=== PATIENT | male | born 1935 | race Caucasian/White ===

== ENCOUNTER 2017-12-30 22:27 | Inpatient (IN) ==
[2017-12-30] MEDS ORDERED: MORPHINE 2 MG/1 ML SYRINGE IV STA ×2 (22:33→23:38)
[2017-12-30] MEDS ORDERED: ASPIRIN 325 MG TABLET PO STA (22:33)
[2017-12-30] MEDS ORDERED: ONDANSETRON 4 MG/2 ML VIAL IV STA (22:33)
[2017-12-30] MEDS ORDERED: NITROGLYCERIN 2% OINT 1 INCH/GM PACK TOP STA (22:33)
[2017-12-30] MEDS ORDERED: NITROGLYCERIN 2% OINT 1 INCH/GM PACK TOP ONE (22:59)
[2017-12-30] MEDS ORDERED: MORPHINE 2 MG/1 ML SYRINGE ONE ×2 (23:00→23:40)
[2017-12-30] MEDS ORDERED: ASPIRIN 325 MG TABLET ONE (23:00)
[2017-12-30] MEDS ORDERED: ONDANSETRON 4 MG/2 ML VIAL ONE ×2 (23:00→23:40)
[2017-12-30 23:06] LABS: Basophils % 0.3 % (0.0-0.8); Eosinophils # 0.2 10*3/uL (0.0-0.87); Eosinophils % 1.9 % (0.00-10.9); Hematocrit 34.2 VOL% (42.0-52.0); Hemoglobin 11.5 GM/DL (14.0-18.0); Immature Granulocytes % 0.9 %; Immature Granulocytes Absolute 0.08 #; Lymphocytes % 22.7 % (21.2-54.2); Mean Corpuscular HGB Conc 33.6 GM/DL (32-36); Mean Corpuscular Hemoglobin 33 PG (27-34); Mean Corpuscular Volume 96.9 FL (87-102); Mean Platelet Volume 10.4 FL (9.6-12.0); Monocytes # 1.1 10*3/uL (0.11-0.8); Monocytes % 12.3 % (1.7-12.7); Neutrophils # 5.5 10*3/uL (1.4-7.4); Neutrophils % 61.9 % (38.7-73.9); Platelet Count 161 T/CUMM (130-400); Red Blood Count 3.53 MC/CUMM (3.8-5.5); Red Cell Distribution Width 13.5 % (9.3-17.3); White Blood Count 8.9 T/CUMM (4-12)
[2017-12-30] MEDS ORDERED: ONDANSETRON 4 MG/2 ML VIAL IV PRN (23:38)
[2017-12-30 23:56] LABS: Alanine Aminotransferase 14 U/L (16-61); Albumin 3.5 G/DL (3.4-5.0); Alkaline Phosphatase 84 U/L (45-117); Aspartate Amino Transferase 15 U/L (0-37); Bilirubin,Total < 0.39 MG/DL (0.2-1.0); Blood Urea Nitrogen 31 MG/DL (7-18); Calcium 8.2 MG/DL (8.5-10.1); Glucose 120 MG/DL (74-106); Osmolality,Calculated 288.3 MOS/KG (273-304); Potassium 4.7 MMOL/L (3.5-5.1); Sodium 141 MMOL/L (136-145); Total Protein 6.7 G/DL (6.4-8.3)
[2017-12-31] MEDS ORDERED: SODIUM BICARBONATE 50 MEQ/50 ML VIAL IV STA (00:21)
[2017-12-31] MEDS ORDERED: ACETYLCYSTEINE 600 MG CAPSULE PO STA (00:21)
[2017-12-31 00:22] LABS: INR 0.9; PT Patient Result 9.9 SECS
[2017-12-31] MEDS ORDERED: ENOXAPARIN 100 MG/ML SYRINGE SUBCUT STA (00:23)
[2017-12-31] MEDS ORDERED: ENOXAPARIN 60 MG/0.6 ML SYRINGE ONE (00:25)
[2017-12-31] MEDS ORDERED: SODIUM BICARBONATE 10 MEQ/10 ML SYRINGE IV ONE (00:26)
[2017-12-31] MEDS ORDERED: ACETYLCYSTEINE 600 MG CAPSULE ONE (00:26)
[2017-12-31] MEDS ORDERED: SODIUM BICARBONATE 50 MEQ/50 ML SYRINGE IV STA (00:37)
[2017-12-31] MEDS ORDERED: HEPARIN/NACL 0.9% 2 UNITS/ML 2,000 ML IV ONE (00:40)
[2017-12-31] MEDS ORDERED: LIDOCAINE 1% 20 ML VIAL ONE (00:40)
[2017-12-31 00:46] LABS: Troponin I Only 0.039 NG/ML (0.00-0.045)
[2017-12-31] MEDS ORDERED: MIDAZOLAM 2 MG/2 ML VIAL ONE ×2 (00:54→01:23)
[2017-12-31] MEDS ORDERED: HYDROmorphone 2 MG/1 ML VIAL ONE ×2 (00:55→01:25)
[2017-12-31] MEDS ORDERED: NITROGLYCERIN SL 0.4 MG TABLET SL ONE ×2 (01:19→01:52)
[2017-12-31] MEDS ORDERED: EPTIFIBATIDE 20,000 MCG/10 ML VIAL ONE ×2 (01:28→01:34)
[2017-12-31] MEDS ORDERED: EPTIFIBATIDE 75 MG/100 ML BOTTLE IV SCH (01:33)
[2017-12-31] MEDS ORDERED: EPTIFIBATIDE 75 MG/100 ML BOTTLE IV ONE (01:34)
[2017-12-31] MEDS ORDERED: TICAGRELOR 90 MG TABLET ONE (01:45)
[2017-12-31] MEDS ORDERED: ZALEPLON 5 MG CAPSULE PO PRN (01:49)
[2017-12-31] MEDS ORDERED: MAGNESIUM SULF RIDER 2 GM in PREMIX 1 EACH IV PRN (01:49)
[2017-12-31] MEDS ORDERED: HYDROmorphone 2 MG/1 ML VIAL IV PRN (01:49)
[2017-12-31] MEDS ORDERED: MAGNESIUM SULF RIDER 4 GM in PREMIX 1 EACH IV PRN (01:49)
[2017-12-31] MEDS ORDERED: NITROGLYCERIN SL 0.4 MG TABLET SL PRN (01:51)
[2017-12-31] MEDS ORDERED: SODIUM CHLORIDE 0.9% 1,000 ML IV SCH (02:00)
[2017-12-31 02:55] LABS: Basophils % 0.2 % (0.0-0.8); Eosinophils # 0.2 10*3/uL (0.0-0.87); Eosinophils % 1.9 % (0.00-10.9); Hematocrit 33.8 VOL% (42.0-52.0); Hemoglobin 11.4 GM/DL (14.0-18.0); Immature Granulocytes Absolute 0.09 #; Lymphocytes # 2.8 10*3/uL (1.4-4.0); Lymphocytes % 30.3 % (21.2-54.2); Mean Corpuscular HGB Conc 33.7 GM/DL (32-36); Mean Corpuscular Hemoglobin 33 PG (27-34); Mean Corpuscular Volume 96.3 FL (87-102); Mean Platelet Volume 10.5 FL (9.6-12.0); Monocytes # 1.1 10*3/uL (0.11-0.8); Monocytes % 12.3 % (1.7-12.7); Neutrophils # 4.9 10*3/uL (1.4-7.4); Neutrophils % 54.3 % (38.7-73.9); Platelet Count 163 T/CUMM (130-400); Red Blood Count 3.51 MC/CUMM (3.8-5.5); Red Cell Distribution Width 13.7 % (9.3-17.3); White Blood Count 9.1 T/CUMM (4-12)
[2017-12-31 03:29] LABS: Blood Urea Nitrogen 30 MG/DL (7-18); Calcium 8.2 MG/DL (8.5-10.1); Glucose 120 MG/DL (74-106); Osmolality,Calculated 287.3 MOS/KG (273-304); Potassium 5.2 MMOL/L (3.5-5.1); Sodium 141 MMOL/L (136-145)
[2017-12-31 03:35] LABS: Troponin I Only 0.087 NG/ML (0.00-0.045)
[2017-12-31 03:58] LABS: Risk Ratio 3.66; VLDL CHOLESTEROL 20.6 MG/DL
[2017-12-31] MEDS ORDERED: TICAGRELOR 90 MG TABLET PO SCH (09:00)
[2017-12-31] MEDS ORDERED: GABAPENTIN 300 MG CAPSULE PO SCH (09:00)
[2017-12-31] MEDS ORDERED: RANOLAZINE 500 MG TABLET PO SCH (09:00)
[2017-12-31] MEDS ORDERED: ASPIRIN EC 81 MG TABLET PO SCH (09:00)
[2017-12-31] MEDS ORDERED: CARVEDILOL 6.25 MG TABLET PO SCH (09:00)
[2017-12-31 11:15] VITALS: BP 145/91
[2017-12-31 11:38] LABS: Apearance,Urine Slightly Hazy (Clear); Bilirubin,Urine Negative (Negative); Blood, Urine Large mg/dL (Negative); Glucose,Urine (UA) Negative (Negative); Ketones,Urine Negative (Negative); Mucus,Urine Occasional /LPF (Occasional); Nitrite,Urine Negative (Negative); Protein,Urine Negative; RBC,Urine 664 /HPF (0-4); Urine Color Yellow (Yellow); Urine Specific Gravity 1.028 (1.001-1.035); Urine Urobilinogen < 2.0 EU/DL (0.2-1.0); WBC,Urine 14 /HPF (0-6)
[2017-12-31] MEDS ORDERED: ROSUVASTATIN 20 MG TABLET PO SCH (21:00)
[2017-12-31] MEDS ORDERED: CHOLECALCIFEROL 5,000 UNIT TABLET PO SCH (21:00)
[2017-12-31] MEDS ORDERED: MULTIVITAMIN (CENTRUM) TABLET PO SCH (21:00)
== END 2017-12-31 12:40 | disposition home or self-care (01) | DRG 247 ==
LOC: EDBD → EDUNIT# → N.ED 22:27 → N.CC 12-31 00:54
PROVIDERS: ADMIT Internal Medicine Cardiovascular Disease; ATTEND Internal Medicine Cardiovascular Disease

== ENCOUNTER 2019-12-07 14:02 | Observation (INO) ==
[2019-12-07] MEDS ORDERED: ASPIRIN CHEW 81 MG TABLET PO STA (14:40)
[2019-12-07 15:16] LABS: Basophils % 0.3 % (0.0-0.8); Eosinophils # 0.1 10*3/uL (0.0-0.87); Eosinophils % 1.9 % (0.00-10.9); Hemoglobin 10.5 GM/DL (14.0-18.0); Immature Granulocytes % 0.4 %; Immature Granulocytes Absolute 0.03 #; Lymphocytes # 1.6 10*3/uL (1.4-4.0); Lymphocytes % 20.8 % (21.2-54.2); Mean Corpuscular HGB Conc 32.8 GM/DL (32-36); Mean Corpuscular Volume 95.8 FL (87-102); Mean Platelet Volume 10.7 FL (9.6-12.0); Monocytes % 15.6 % (1.7-12.7); Platelet Count 111 T/CUMM (130-400); Red Blood Count 3.34 MC/CUMM (3.8-5.5); Red Cell Distribution Width 13.7 % (9.3-17.3); White Blood Count 7.5 T/CUMM (4-12)
[2019-12-07 15:25] LABS: INR 1.1; PT Patient Result 11.8 SECS (9.6-12.2); Partial Thromboplastin Time 33.8 SECS (20.8-36.0)
[2019-12-07] MEDS ORDERED: ONDANSETRON 4 MG/2 ML VIAL IV PRN (15:33)
[2019-12-07 15:44] LABS: Alanine Aminotransferase 10 U/L (16-61); Albumin 3.3 G/DL (3.4-5.0); Alkaline Phosphatase 49 U/L (45-117); Aspartate Amino Transferase 13 U/L (0-37); Blood Urea Nitrogen 21 MG/DL (7-18); Calcium 7.5 MG/DL (8.5-10.1); Estimated Glom Filtration Rate 40 ML/MIN; Glucose 102 MG/DL (74-106); Total Protein 6.4 G/DL (6.4-8.3)
[2019-12-07 15:49] LABS: Eosinophils 2 % (0-10); Lymphocytes 22 % (20-55); Segmented Neutrophils 60 % (50-85); Total Cells Counted 100
[2019-12-07 15:50] LABS: Hypochromasia 1+
[2019-12-07 15:51] LABS: Ovalocytes Slight
[2019-12-07 15:52] LABS: Platelet Estimate Decreased
[2019-12-07] MEDS ORDERED: LORazepam 2 MG/1 ML VIAL IV STA (15:58)
[2019-12-07 16:12] LABS: Risk Ratio 3.52; Thyroid Stimulating Hormone 1.68 uIU/ml (0.358-3.74)
[2019-12-07] MEDS: TICAGRELOR 90 MG TABLET PO SCH (20:20)
[2019-12-07] MEDS: ROSUVASTATIN 20 MG TABLET PO SCH (20:20)
[2019-12-07] MEDS: APIXABAN 5 MG TABLET PO SCH (20:20)
[2019-12-07 22:47] LABS: Apearance,Urine CLEAR (Clear); Bilirubin,Urine Negative (Negative); Blood, Urine Moderate mg/dL (Negative); Glucose,Urine (UA) Negative (Negative); Ketones,Urine Negative (Negative); Mucus,Urine Occasional /LPF (Occasional); Nitrite,Urine Negative (Negative); Protein,Urine Negative; RBC,Urine 16 /HPF (0-4); Urine Color Yellow (Yellow); Urine Specific Gravity 1.011 (1.001-1.035); Urine Urobilinogen < 2.0 EU/DL (0.2-1.0); WBC,Urine 1 /HPF (0-6)
[2019-12-07 22:52] LABS: Barbiturates Screen,Urine Negative (Negative); Benzodiazepines Screen,Urine Negative (Negative); Cannabinoid Screen,Urine Negative (Negative); Opiate Screen,Urine Positive (Negative); Phencyclidine Screen,Urine Negative (Negative)
[2019-12-07] MEDS: RANOLAZINE 500 MG TABLET PO SCH (23:30)
[2019-12-08 04:50] LABS: Basophils % 0.3 % (0.0-0.8); Eosinophils # 0.2 10*3/uL (0.0-0.87); Eosinophils % 2.6 % (0.00-10.9); Hematocrit 29.3 VOL% (42.0-52.0); Hemoglobin 9.6 GM/DL (14.0-18.0); Immature Granulocytes % 0.3 %; Immature Granulocytes Absolute 0.02 #; Lymphocytes # 1.7 10*3/uL (1.4-4.0); Lymphocytes % 24.4 % (21.2-54.2); Mean Corpuscular HGB Conc 32.8 GM/DL (32-36); Mean Corpuscular Volume 94.5 FL (87-102); Mean Platelet Volume 11.4 FL (9.6-12.0); Neutrophils % 52.4 % (38.7-73.9); Platelet Count 119 T/CUMM (130-400); Red Cell Distribution Width 13.7 % (9.3-17.3)
[2019-12-08 05:17] LABS: Osmolality,Calculated 276.7 MOS/KG (273-304)
[2019-12-08 05:28] LABS: Eosinophils 2 % (0-10); Hypochromasia 1+; Lymphocytes 31 % (20-55); Ovalocytes Slight; Platelet Estimate Decreased; Segmented Neutrophils 50 % (50-85); Total Cells Counted 100
[2019-12-08] MEDS: RANOLAZINE 500 MG TABLET PO SCH ×2 (08:27→20:47)
[2019-12-08] MEDS: APIXABAN 5 MG TABLET PO SCH ×2 (08:27→20:47)
[2019-12-08] MEDS: TICAGRELOR 90 MG TABLET PO SCH ×2 (08:27→20:47)
[2019-12-08] MEDS: carvediloL 6.25 MG TABLET PO SCH ×2 (08:27→16:06)
[2019-12-08] MEDS ORDERED: BISACODYL 5 MG TABLET PO PRN (15:53)
[2019-12-08] MEDS: ROSUVASTATIN 20 MG TABLET PO SCH (20:47)
[2019-12-08] MEDS ORDERED: LUNESTA (ESZOPICLONE) 3 MG PO SCH (21:00)
[2019-12-09 05:19] LABS: Basophils % 0.5 % (0.0-0.8); Eosinophils # 0.2 10*3/uL (0.0-0.87); Eosinophils % 2.4 % (0.00-10.9); Hematocrit 31.4 VOL% (42.0-52.0); Hemoglobin 10.3 GM/DL (14.0-18.0); Immature Granulocytes % 0.3 %; Immature Granulocytes Absolute 0.02 #; Lymphocytes # 1.6 10*3/uL (1.4-4.0); Lymphocytes % 26.5 % (21.2-54.2); Mean Corpuscular HGB Conc 32.8 GM/DL (32-36); Mean Corpuscular Volume 94.3 FL (87-102); Mean Platelet Volume 11.3 FL (9.6-12.0); Monocytes % 16.8 % (1.7-12.7); Neutrophils % 53.5 % (38.7-73.9); Platelet Count 118 T/CUMM (130-400); Red Blood Count 3.33 MC/CUMM (3.8-5.5); Red Cell Distribution Width 13.7 % (9.3-17.3); White Blood Count 6.2 T/CUMM (4-12)
[2019-12-09 05:46] LABS: Eosinophils 3 % (0-10); Hypochromasia Slight; Lymphocytes 18 % (20-55); Platelet Estimate Decreased; Segmented Neutrophils 67 % (50-85); Total Cells Counted 100
[2019-12-09 05:49] LABS: Osmolality,Calculated 277.7 MOS/KG (273-304)
[2019-12-09 08:17] VITALS: BP 116/64
== END 2019-12-09 08:52 | disposition left against medical advice (07) ==
LOC: N.EDINP 14:02 → N.ED 14:02 → SUATTDRO 15:07 → N.EDINP 16:43 → N.5E 16:48
PROVIDERS: ADMIT Internal Medicine; ATTEND Internal Medicine Cardiovascular Disease

== ENCOUNTER 2020-01-10 11:11 | Inpatient (IN) ==
[2020-01-10 09:48] LABS: Basophils % 0.4 % (0.0-0.8); Eosinophils # 0.2 10*3/uL (0.0-0.87); Eosinophils % 2.2 % (0.00-10.9); Hematocrit 35.6 VOL% (42.0-52.0); Hemoglobin 11.6 GM/DL (14.0-18.0); Immature Granulocytes % 0.4 %; Immature Granulocytes Absolute 0.03 #; Lymphocytes # 1.6 10*3/uL (1.4-4.0); Mean Corpuscular HGB Conc 32.6 GM/DL (32-36); Mean Corpuscular Volume 94.4 FL (87-102); Mean Platelet Volume 10.4 FL (9.6-12.0); Monocytes % 16.8 % (1.7-12.7); Neutrophils % 57.2 % (38.7-73.9); Platelet Count 136 T/CUMM (130-400); Red Blood Count 3.77 MC/CUMM (3.8-5.5); Red Cell Distribution Width 14.5 % (9.3-17.3); White Blood Count 7.1 T/CUMM (4-12)
[2020-01-10 10:05] LABS: PT Patient Result 10.4 SECS (9.6-12.2)
[2020-01-10 10:08] LABS: Albumin 3.7 G/DL (3.4-5.0); Bilirubin,Total 0.7 MG/DL (0.2-1.0); Calcium 9.7 MG/DL (8.5-10.1); Osmolality,Calculated 275.1 MOS/KG (273-304)
[2020-01-10 10:09] LABS: Eosinophils 4 % (0-10); Hypochromasia 1+; Lymphocytes 22 % (20-55); Platelet Estimate Normal; Segmented Neutrophils 59 % (50-85); Total Cells Counted 100
[~2020-01-10 11:11] MED LIST: ACETAMINOPHEN 325 MG TABLET PO PRN; DOCUSATE SODIUM 100 MG CAPSULE PO PRN; MAGNESIUM SULF RIDER 2 GM in PREMIX 1 EACH IV PRN; MAGNESIUM SULF RIDER 4 GM in PREMIX 1 EACH IV PRN; NITROGLYCERIN SL 0.4 MG TABLET SL PRN; ONDANSETRON 4 MG/2 ML VIAL IV PRN; POTASSIUM CHLORIDE 20 MEQ TABLET PO PRN; ZALEPLON 5 MG CAPSULE PO PRN; diphenhydrAMINE CAP 25 MG CAPSULE PO PRN
[2020-01-10] MEDS ORDERED: ASPIRIN EC 81 MG TABLET PO SCH (11:15)
[2020-01-10] MEDS: Eszopiclone [Lunesta] 3 MG PO SCH ×2 (11:18→23:15)
[2020-01-10] MEDS: CHOLECALCIFEROL 5,000 UNIT TABLET PO SCH ×2 (11:18→23:15)
[2020-01-10] MEDS: FAMOTIDINE 20 MG TABLET PO SCH ×2 (11:18→23:15)
[2020-01-10] MEDS: ROSUVASTATIN 20 MG TABLET PO SCH ×2 (11:18→23:14)
[2020-01-10] MEDS: HEPARIN DRIP 25,000 UNITS/500 ML PREMIX IV SCH (11:32)
[2020-01-10 18:53] LABS: Apearance,Urine Slightly Hazy (Clear); Bilirubin,Urine Negative (Negative); Blood, Urine Large mg/dL (Negative); Glucose,Urine (UA) Negative (Negative); Ketones,Urine Negative (Negative); Mucus,Urine Occasional /LPF (Occasional); Nitrite,Urine Negative (Negative); Protein,Urine 30 MG/DL; RBC,Urine 1175 /HPF (0-4); Urine Color Red (Yellow); Urine Specific Gravity 1.011 (1.001-1.035); Urine Urobilinogen < 2.0 EU/DL (0.2-1.0)
[2020-01-10] MEDS: carvediloL 6.25 MG TABLET PO SCH (23:15)
[2020-01-10] MEDS: RANOLAZINE 500 MG TABLET PO SCH (23:15)
[2020-01-11 02:00] LABS: Basophils % 0.6 % (0.0-0.8); Eosinophils # 0.2 10*3/uL (0.0-0.87); Eosinophils % 3.2 % (0.00-10.9); Hematocrit 33.5 VOL% (42.0-52.0); Hemoglobin 11.1 GM/DL (14.0-18.0); Immature Granulocytes % 0.5 %; Immature Granulocytes Absolute 0.03 #; Lymphocytes # 2.2 10*3/uL (1.4-4.0); Lymphocytes % 34.3 % (21.2-54.2); Mean Corpuscular HGB Conc 33.1 GM/DL (32-36); Mean Corpuscular Volume 94.4 FL (87-102); Mean Platelet Volume 10.4 FL (9.6-12.0); Monocytes % 17.1 % (1.7-12.7); Neutrophils % 44.3 % (38.7-73.9); Platelet Count 125 T/CUMM (130-400); Red Blood Count 3.55 MC/CUMM (3.8-5.5); White Blood Count 6.3 T/CUMM (4-12)
[2020-01-11 02:17] LABS: Calcium 9.2 MG/DL (8.5-10.1); Osmolality,Calculated 271.2 MOS/KG (273-304)
[2020-01-11 02:32] LABS: Eosinophils 3 % (0-10); Hypochromasia Slight; Lymphocytes 39 % (20-55); Platelet Estimate Normal; Segmented Neutrophils 43 % (50-85); Total Cells Counted 100
[2020-01-11 02:33] LABS: Ovalocytes Slight
[2020-01-11] MEDS ORDERED: ASPIRIN EC 81 MG TABLET PO SCH (09:00)
[2020-01-11] MEDS: PANTOPRAZOLE 40 MG TABLET PO SCH (09:27)
[2020-01-11] MEDS: RANOLAZINE 500 MG TABLET PO SCH ×2 (09:27→20:50)
[2020-01-11] MEDS: carvediloL 6.25 MG TABLET PO SCH ×2 (09:27→20:50)
[2020-01-11] MEDS: CETIRIZINE 10 MG TABLET PO SCH ×7 (10:03→20:52)
[2020-01-11] MEDS: ROSUVASTATIN 20 MG TABLET PO SCH ×2 (13:09→20:50)
[2020-01-11] MEDS: Eszopiclone [Lunesta] 3 MG PO SCH ×2 (13:10→20:52)
[2020-01-11] MEDS: FAMOTIDINE 20 MG TABLET PO SCH ×2 (13:10→20:52)
[2020-01-11] MEDS: CHOLECALCIFEROL 5,000 UNIT TABLET PO SCH ×2 (13:10→20:52)
[2020-01-11] MEDS: HEPARIN DRIP 25,000 UNITS/500 ML PREMIX IV SCH (13:43)
[2020-01-11] MEDS ORDERED: CETIRIZINE 10 MG TABLET PO SCH (21:00)
[2020-01-11] MEDS ORDERED: CHOLECALCIFEROL 5,000 UNIT TABLET PO SCH (21:00)
[2020-01-11] MEDS ORDERED: ROSUVASTATIN 20 MG TABLET PO SCH (21:00)
[2020-01-11] MEDS ORDERED: FAMOTIDINE 20 MG TABLET PO SCH (21:00)
[2020-01-12 05:12] LABS: Basophils % 0.6 % (0.0-0.8); Eosinophils # 0.2 10*3/uL (0.0-0.87); Hematocrit 31.9 VOL% (42.0-52.0); Hemoglobin 10.3 GM/DL (14.0-18.0); Immature Granulocytes % 0.3 %; Immature Granulocytes Absolute 0.02 #; Lymphocytes % 31.7 % (21.2-54.2); Mean Corpuscular HGB Conc 32.3 GM/DL (32-36); Mean Corpuscular Volume 95.8 FL (87-102); Monocytes % 16.7 % (1.7-12.7); Neutrophils % 47.7 % (38.7-73.9); Platelet Count 125 T/CUMM (130-400); Red Blood Count 3.33 MC/CUMM (3.8-5.5); Red Cell Distribution Width 14.3 % (9.3-17.3); White Blood Count 6.3 T/CUMM (4-12)
[2020-01-12 05:27] LABS: Calcium 8.5 MG/DL (8.5-10.1); Osmolality,Calculated 278.7 MOS/KG (273-304)
[2020-01-12 05:50] LABS: Atypical Lymphocytes Few; Eosinophils 1 % (0-10); Lymphocytes 40 % (20-55); Segmented Neutrophils 47 % (50-85); Total Cells Counted 100
[2020-01-12 05:51] LABS: Hypochromasia Slight; Platelet Estimate Adequate
[2020-01-12] MEDS ORDERED: LIDOCAINE 2% TOP JELLY 20 ML VIAL INTRAURETH ONE (06:37)
[2020-01-12] MEDS ORDERED: NEOMYCIN/POLYMYXIN IRRIG SOLN 1 ML AMP BLADDERIRR ONE (06:37)
[2020-01-12] MEDS ORDERED: LEVOFLOXACIN INJ 100 ML IV ONE (07:28)
[2020-01-12] MEDS ORDERED: PHENYLEPHRINE DRIP 20 MG/250 ML PREMIX IV ONE (08:51)
[2020-01-12] MEDS ORDERED: propofoL 200 MG/20 ML VIAL IV ONE (08:51)
[2020-01-12] MEDS ORDERED: SEVOFLURANE 1 UNIT/15 MINUTE INH ONE (08:51)
[2020-01-12] MEDS ORDERED: LIDOCAINE 2% 5 ML VIAL ONE (08:51)
[2020-01-12] MEDS ORDERED: fentaNYL 100 MCG/2 ML VIAL ONE (08:52)
[2020-01-12] MEDS ORDERED: MIDAZOLAM 2 MG/2 ML VIAL ONE (08:52)
[2020-01-12] MEDS ORDERED: GLYCOPYRROLATE 0.4 MG/2 ML VIAL ONE (08:52)
[2020-01-12] MEDS ORDERED: DEXAMETHASONE 4 MG/1 ML VIAL ONE (08:52)
[2020-01-12] MEDS ORDERED: ETOMIDATE 40 MG/20 ML VIAL IV ONE (08:52)
[2020-01-12] MEDS ORDERED: ONDANSETRON 4 MG/2 ML VIAL ONE (08:52)
[2020-01-12] MEDS ORDERED: NEOSTIGMINE 10 MG/10 ML VIAL ONE (08:53)
[2020-01-12] MEDS ORDERED: SODIUM CHLORIDE 0.9% 1,000 ML IV ONE (08:53)
[2020-01-12] MEDS ORDERED: PHENYLEPHRINE 1 MG/10 ML SYRINGE IV ONE (08:53)
[2020-01-12] MEDS ORDERED: ROCURONIUM 100 MG/10 ML VIAL IV ONE (08:53)
[2020-01-12] MEDS ORDERED: MEPERIDINE 25 MG/1 ML VIAL IV PRN (08:54)
[2020-01-12] MEDS ORDERED: ONDANSETRON 4 MG/2 ML VIAL IV PRN (08:54)
[2020-01-12] MEDS: MORPHINE 4 MG/1 ML VIAL IV PRN ×2 (10:38→23:24)
[2020-01-12] MEDS: CETIRIZINE 10 MG TABLET PO SCH ×2 (10:40→21:23)
[2020-01-12] MEDS: carvediloL 6.25 MG TABLET PO SCH ×2 (10:40→21:21)
[2020-01-12] MEDS: PANTOPRAZOLE 40 MG TABLET PO SCH (10:40)
[2020-01-12] MEDS: RANOLAZINE 500 MG TABLET PO SCH ×2 (10:40→21:22)
[2020-01-12] MEDS ORDERED: HYDROmorphone 2 MG/1 ML VIAL IV ONE (11:46)
[2020-01-12] MEDS: PHENAZOPYRIDINE 95 MG TABLET PO SCH ×2 (13:22→18:24)
[2020-01-12] MEDS: ROSUVASTATIN 20 MG TABLET PO SCH (21:22)
[2020-01-12] MEDS: CHOLECALCIFEROL 5,000 UNIT TABLET PO SCH (21:22)
[2020-01-12] MEDS: FAMOTIDINE 20 MG TABLET PO SCH (21:25)
[2020-01-12] MEDS: Eszopiclone [Lunesta] 3 MG PO SCH ×2 (21:53→23:00)
[2020-01-13 06:21] LABS: Hematocrit 31.2 VOL% (42.0-52.0); Immature Granulocytes % 0.6 %; Immature Granulocytes Absolute 0.05 #; Lymphocytes # 1.4 10*3/uL (1.4-4.0); Lymphocytes % 15.6 % (21.2-54.2); Mean Corpuscular HGB Conc 32.1 GM/DL (32-36); Mean Corpuscular Volume 96.3 FL (87-102); Monocytes % 11.6 % (1.7-12.7); Neutrophils % 72.2 % (38.7-73.9); Platelet Count 129 T/CUMM (130-400); Red Blood Count 3.24 MC/CUMM (3.8-5.5); Red Cell Distribution Width 14.4 % (9.3-17.3); White Blood Count 8.8 T/CUMM (4-12)
[2020-01-13 06:27] LABS: PT Patient Result 10.8 SECS (9.6-12.2); Partial Thromboplastin Time 26.2 SECS (20.8-36.0)
[2020-01-13 06:47] LABS: Calcium 8.6 MG/DL (8.5-10.1)
[2020-01-13] MEDS ORDERED: HEPARIN 5,000 UNIT/1 ML VIAL IV ONE (07:30)
[2020-01-13] MEDS: HEPARIN DRIP 25,000 UNITS/500 ML PREMIX IV SCH (07:45)
[2020-01-13] MEDS: RANOLAZINE 500 MG TABLET PO SCH ×2 (09:32→21:11)
[2020-01-13] MEDS: PHENAZOPYRIDINE 95 MG TABLET PO SCH ×3 (09:32→18:21)
[2020-01-13] MEDS: carvediloL 6.25 MG TABLET PO SCH ×2 (09:33→21:11)
[2020-01-13] MEDS: PANTOPRAZOLE 40 MG TABLET PO SCH (09:33)
[2020-01-13] MEDS: CETIRIZINE 10 MG TABLET PO SCH ×2 (09:36→21:12)
[2020-01-13] MEDS: MORPHINE 4 MG/1 ML VIAL IV PRN ×2 (10:19→22:23)
[2020-01-13 14:50] LABS: PT Patient Result 10.4 SECS (9.6-12.2); Partial Thromboplastin Time 35.2 SECS (20.8-36.0)
[2020-01-13] MEDS: ROSUVASTATIN 20 MG TABLET PO SCH (21:11)
[2020-01-13] MEDS: Eszopiclone [Lunesta] 3 MG PO SCH (21:11)
[2020-01-13] MEDS: FAMOTIDINE 20 MG TABLET PO SCH (21:11)
[2020-01-13] MEDS: CHOLECALCIFEROL 5,000 UNIT TABLET PO SCH (21:12)
[2020-01-14 00:48] LABS: Basophils % 0.1 % (0.0-0.8); Eosinophils # 0.1 10*3/uL (0.0-0.87); Eosinophils % 1.2 % (0.00-10.9); Hematocrit 28.8 VOL% (42.0-52.0); Hemoglobin 9.3 GM/DL (14.0-18.0); Immature Granulocytes % 0.5 %; Immature Granulocytes Absolute 0.04 #; Lymphocytes # 1.8 10*3/uL (1.4-4.0); Lymphocytes % 23.4 % (21.2-54.2); Mean Corpuscular HGB Conc 32.3 GM/DL (32-36); Mean Corpuscular Volume 97.3 FL (87-102); Mean Platelet Volume 11.2 FL (9.6-12.0); Monocytes % 14.8 % (1.7-12.7); Platelet Count 121 T/CUMM (130-400); Red Blood Count 2.96 MC/CUMM (3.8-5.5); Red Cell Distribution Width 14.6 % (9.3-17.3); White Blood Count 7.6 T/CUMM (4-12)
[2020-01-14 01:05] LABS: Calcium 8.4 MG/DL (8.5-10.1)
[2020-01-14 01:25] LABS: PT Patient Result 10.6 SECS (9.6-12.2)
[2020-01-14 01:35] LABS: Partial Thromboplastin Time 54.1 SECS (20.8-36.0)
[2020-01-14] MEDS: PHENAZOPYRIDINE 95 MG TABLET PO SCH ×3 (08:51→18:17)
[2020-01-14] MEDS: RANOLAZINE 500 MG TABLET PO SCH ×2 (08:51→21:16)
[2020-01-14] MEDS: PANTOPRAZOLE 40 MG TABLET PO SCH (08:52)
[2020-01-14] MEDS: carvediloL 6.25 MG TABLET PO SCH ×2 (08:52→21:16)
[2020-01-14] MEDS: MORPHINE 4 MG/1 ML VIAL IV PRN ×2 (08:52→21:16)
[2020-01-14] MEDS ORDERED: BISACODYL 5 MG TABLET PO ONE (09:17)
[2020-01-14] MEDS: HEPARIN DRIP 25,000 UNITS/500 ML PREMIX IV SCH (11:16)
[2020-01-14] MEDS: CETIRIZINE 10 MG TABLET PO SCH ×2 (11:17→21:15)
[2020-01-14] MEDS: DEXTROSE 5% NACL 0.45% 1,000 ML IV SCH ×2 (11:47→21:31)
[2020-01-14 15:46] LABS: Hematocrit 30.5 VOL% (42.0-52.0); Hemoglobin 9.9 GM/DL (14.0-18.0)
[2020-01-14] MEDS: ROSUVASTATIN 20 MG TABLET PO SCH (21:15)
[2020-01-14] MEDS: CHOLECALCIFEROL 5,000 UNIT TABLET PO SCH (21:15)
[2020-01-14] MEDS: FAMOTIDINE 20 MG TABLET PO SCH (21:16)
[2020-01-14] MEDS: Eszopiclone [Lunesta] 3 MG PO SCH (21:23)
[2020-01-15 06:14] LABS: Basophils % 0.5 % (0.0-0.8); Eosinophils # 0.2 10*3/uL (0.0-0.87); Eosinophils % 2.9 % (0.00-10.9); Hematocrit 32.1 VOL% (42.0-52.0); Immature Granulocytes % 0.4 %; Immature Granulocytes Absolute 0.03 #; Lymphocytes # 2.1 10*3/uL (1.4-4.0); Lymphocytes % 27.4 % (21.2-54.2); Mean Corpuscular HGB Conc 31.2 GM/DL (32-36); Monocytes % 16.3 % (1.7-12.7); Neutrophils % 52.5 % (38.7-73.9); Platelet Count 142 T/CUMM (130-400); Red Blood Count 3.21 MC/CUMM (3.8-5.5); Red Cell Distribution Width 14.3 % (9.3-17.3); White Blood Count 7.7 T/CUMM (4-12)
[2020-01-15 06:32] LABS: Osmolality,Calculated 280.7 MOS/KG (273-304)
[2020-01-15] MEDS: DEXTROSE 5% NACL 0.45% 1,000 ML IV SCH ×2 (07:43→17:40)
[2020-01-15 09:02] LABS: Lymphocytes 9 % (20-55); Metamyelocytes 1 %; Platelet Estimate Adequate; Segmented Neutrophils 69 % (50-85); Total Cells Counted 100
[2020-01-15] MEDS: PANTOPRAZOLE 40 MG TABLET PO SCH (09:13)
[2020-01-15] MEDS: PHENAZOPYRIDINE 95 MG TABLET PO SCH ×3 (09:13→17:38)
[2020-01-15] MEDS: CETIRIZINE 10 MG TABLET PO SCH ×2 (09:13→21:27)
[2020-01-15] MEDS: RANOLAZINE 500 MG TABLET PO SCH ×2 (09:13→21:28)
[2020-01-15] MEDS: carvediloL 6.25 MG TABLET PO SCH ×2 (09:13→21:28)
[2020-01-15] MEDS: HEPARIN DRIP 25,000 UNITS/500 ML PREMIX IV SCH (12:01)
[2020-01-15 16:07] LABS: Hematocrit 30.9 VOL% (42.0-52.0); Hemoglobin 9.7 GM/DL (14.0-18.0)
[2020-01-15] MEDS: CHOLECALCIFEROL 5,000 UNIT TABLET PO SCH (21:27)
[2020-01-15] MEDS: FAMOTIDINE 20 MG TABLET PO SCH (21:28)
[2020-01-15] MEDS: ROSUVASTATIN 20 MG TABLET PO SCH (21:28)
[2020-01-15] MEDS: Eszopiclone [Lunesta] 3 MG PO SCH (21:30)
[2020-01-16 05:28] LABS: Basophils % 0.4 % (0.0-0.8); Eosinophils # 0.2 10*3/uL (0.0-0.87); Eosinophils % 2.5 % (0.00-10.9); Hematocrit 31.5 VOL% (42.0-52.0); Hemoglobin 9.8 GM/DL (14.0-18.0); Immature Granulocytes % 0.3 %; Immature Granulocytes Absolute 0.02 #; Lymphocytes # 1.6 10*3/uL (1.4-4.0); Lymphocytes % 21.2 % (21.2-54.2); Mean Corpuscular HGB Conc 31.1 GM/DL (32-36); Mean Corpuscular Volume 97.5 FL (87-102); Mean Platelet Volume 11.2 FL (9.6-12.0); Monocytes % 15.9 % (1.7-12.7); Neutrophils % 59.7 % (38.7-73.9); Platelet Count 140 T/CUMM (130-400); Red Blood Count 3.23 MC/CUMM (3.8-5.5); Red Cell Distribution Width 14.2 % (9.3-17.3); White Blood Count 7.7 T/CUMM (4-12)
[2020-01-16 05:55] LABS: Calcium 8.2 MG/DL (8.5-10.1); Osmolality,Calculated 268.4 MOS/KG (273-304)
[2020-01-16 06:05] LABS: Band Neutrophils 3 % (0-10); Eosinophils 4 % (0-10); Lymphocytes 17 % (20-55); Segmented Neutrophils 60 % (50-85); Total Cells Counted 100
[2020-01-16 06:06] LABS: Anisocytosis 1+; Platelet Estimate Adequate
[2020-01-16] MEDS: HEPARIN DRIP 25,000 UNITS/500 ML PREMIX IV SCH (06:56)
[2020-01-16] MEDS: DEXTROSE 5% NACL 0.45% 1,000 ML IV SCH (07:31)
[2020-01-16 09:09] VITALS: BP 128/66
[2020-01-16] MEDS: PANTOPRAZOLE 40 MG TABLET PO SCH (09:21)
[2020-01-16] MEDS: carvediloL 6.25 MG TABLET PO SCH (09:21)
[2020-01-16] MEDS: PHENAZOPYRIDINE 95 MG TABLET PO SCH (09:21)
[2020-01-16] MEDS: RANOLAZINE 500 MG TABLET PO SCH (09:21)
[2020-01-16] MEDS: CETIRIZINE 10 MG TABLET PO SCH (09:21)
[2020-01-16] MEDS ORDERED: BISACODYL 5 MG TABLET PO ONE (11:54)
== END 2020-01-16 12:47 | disposition home or self-care (01) | DRG 669 ==
LOC: N.EDINP → N.TELEN → PREINTOOBSV 13:53
PROVIDERS: ADMIT Internal Medicine Interventional Cardiology; ATTEND Internal Medicine Interventional Cardiology

== ENCOUNTER 2022-07-09 08:53 | Inpatient (IN) ==
[2022-07-09] MEDS ORDERED: LIDOCAINE 2% 5 ML VIAL ONE ×2 (09:23→10:11)
[2022-07-09] MEDS ORDERED: fentaNYL 100 MCG/2 ML VIAL ONE (09:23)
[2022-07-09] MEDS ORDERED: propofoL 200 MG/20 ML VIAL IV ONE ×3 (09:23→10:11)
[2022-07-09] MEDS ORDERED: ONDANSETRON 4 MG/2 ML VIAL ONE (09:23)
[2022-07-09 09:28] LABS: Basophils % 0.4 % (0.0-0.8); Eosinophils # 0.2 10*3/uL (0.0-0.87); Eosinophils % 1.8 % (0.00-10.9); Hematocrit 29.2 VOL% (42.0-52.0); Hemoglobin 9.5 GM/DL (14.0-18.0); Immature Granulocytes % 0.4 %; Immature Granulocytes Absolute 0.03 #; Lymphocytes # 1.6 10*3/uL (1.4-4.0); Lymphocytes % 19.3 % (21.2-54.2); Mean Corpuscular HGB Conc 32.5 GM/DL (32-36); Mean Corpuscular Volume 95.1 FL (87-102); Mean Platelet Volume 11.4 FL (9.6-12.0); Monocytes # 1.4 10*3/uL (0.11-0.8); Monocytes % 16.1 % (1.7-12.7); Platelet Count 133 T/CUMM (130-400); Red Blood Count 3.07 MC/CUMM (3.8-5.5); Red Cell Distribution Width 18.2 % (9.3-17.3); White Blood Count 8.4 T/CUMM (4-12)
[2022-07-09 09:49] LABS: Albumin 3.4 G/DL (3.4-5.0); Bilirubin,Total 0.6 MG/DL (0.20-1.00); Calcium 8.7 MG/DL (8.5-10.1); Lymphocytes 19 % (20-55); Osmolality,Calculated 281.5 MOS/KG (273-304); Platelet Estimate Normal; Potassium 4.3 MMOL/L (3.5-5.1); Total Cells Counted 100; Total Protein 6.8 G/DL (6.4-8.2)
[2022-07-09] MEDS ORDERED: cefTRIAXone 1,000 MG in SODIUM CHLORIDE 0.9% 100 ML IV ONE (10:00)
[2022-07-09] MEDS ORDERED: SODIUM CHLORIDE 0.9% 250 ML IV ONE (10:11)
[2022-07-09] MEDS ORDERED: ETOMIDATE 40 MG/20 ML VIAL IV ONE (10:12)
[2022-07-09] MEDS ORDERED: LACTATED RINGERS 1,000 ML IV SCH (10:30)
[2022-07-09] MEDS ORDERED: MIDAZOLAM 2 MG/2 ML VIAL ONE (10:32)
[2022-07-09] MEDS ORDERED: KETAMINE 500 MG/10 ML VIAL ONE (10:35)
[2022-07-09] MEDS ORDERED: ePHEDrine 50 MG/ML VIAL ONE (11:00)
[2022-07-09] MEDS ORDERED: oxyCODONE/ACETAMINOPHEN 5-325 MG TABLET PO PRN (11:06)
[2022-07-09] MEDS ORDERED: ONDANSETRON 4 MG/2 ML VIAL IV PRN ×2 (11:06→11:25)
[2022-07-09] MEDS ORDERED: diphenhydrAMINE 50 MG/1 ML VIAL IV PRN (11:06)
[2022-07-09] MEDS ORDERED: PROMETHAZINE 25 MG/1 ML VIAL IM PRN (11:06)
[2022-07-09] MEDS ORDERED: SIMETHICONE CHEW 125 MG TABLET PO PRN (11:06)
[2022-07-09] MEDS ORDERED: NITROGLYCERIN SL 0.4 MG TABLET SL PRN (11:09)
[2022-07-09] MEDS: HYDROmorphone 1 MG/1 ML SYRINGE IV PRN ×5 (11:25→20:47)
[2022-07-09] MEDS ORDERED: cefTRIAXone 1,000 MG in SODIUM CHLORIDE 0.9% 100 ML IV SCH (11:30)
[2022-07-09] MEDS: ACETAMINOPHEN 325 MG TABLET PO SCH ×4 (12:59→22:59)
[2022-07-09] MEDS: FAMOTIDINE 20 MG TABLET PO SCH (20:46)
[2022-07-09] MEDS: ROSUVASTATIN 20 MG TABLET PO SCH (20:46)
[2022-07-09] MEDS: carvediloL 6.25 MG TABLET PO SCH (20:46)
[2022-07-09] MEDS: CETIRIZINE 10 MG TABLET PO SCH (20:47)
[2022-07-09] MEDS: ZALEPLON 5 MG CAPSULE PO SCH (20:47)
[2022-07-10 04:34] LABS: Basophils % 0.4 % (0.0-0.8); Eosinophils # 0.2 10*3/uL (0.0-0.87); Eosinophils % 2.7 % (0.00-10.9); Hematocrit 27.2 VOL% (42.0-52.0); Hemoglobin 8.7 GM/DL (14.0-18.0); Immature Granulocytes % 0.4 %; Immature Granulocytes Absolute 0.03 #; Lymphocytes # 1.7 10*3/uL (1.4-4.0); Lymphocytes % 21.8 % (21.2-54.2); Mean Corpuscular Volume 96.5 FL (87-102); Mean Platelet Volume 11.4 FL (9.6-12.0); Monocytes # 1.4 10*3/uL (0.11-0.8); Monocytes % 18.3 % (1.7-12.7); Neutrophils % 56.4 % (38.7-73.9); Platelet Count 131 T/CUMM (130-400); Red Blood Count 2.82 MC/CUMM (3.8-5.5); Red Cell Distribution Width 18.2 % (9.3-17.3); White Blood Count 7.9 T/CUMM (4-12)
[2022-07-10 04:50] LABS: Calcium 8.3 MG/DL (8.5-10.1); Osmolality,Calculated 279.7 MOS/KG (273-304); Potassium 4.4 MMOL/L (3.5-5.1)
[2022-07-10 05:03] LABS: Eosinophils 2 % (0-10); Hypochromia Slight; Lymphocytes 24 % (20-55); Microcytosis Slight; Platelet Estimate Normal; Total Cells Counted 100
[2022-07-10] MEDS: ACETAMINOPHEN 325 MG TABLET PO SCH ×3 (06:25→16:58)
[2022-07-10] MEDS: RANOLAZINE 500 MG TABLET PO SCH (08:17)
[2022-07-10] MEDS: carvediloL 6.25 MG TABLET PO SCH ×2 (08:17→21:32)
[2022-07-10] MEDS ORDERED: ISOSORBIDE MONONITRATE 30 MG TABLET PO SCH (09:00)
[2022-07-10] MEDS ORDERED: AMOXICILLIN 875 MG TABLET PO SCH (09:00)
[2022-07-10] MEDS: HYDROmorphone 1 MG/1 ML SYRINGE IV PRN ×2 (15:44→19:30)
[2022-07-10] MEDS: FAMOTIDINE 20 MG TABLET PO SCH (21:34)
[2022-07-10] MEDS: ISOSORBIDE MONONITRATE 30 MG TABLET PO SCH (21:35)
[2022-07-10] MEDS: CETIRIZINE 10 MG TABLET PO SCH (21:35)
[2022-07-10] MEDS: ROSUVASTATIN 20 MG TABLET PO SCH (21:35)
[2022-07-10] MEDS: ZALEPLON 5 MG CAPSULE PO SCH (21:39)
[2022-07-11] MEDS: ACETAMINOPHEN 325 MG TABLET PO SCH ×4 (02:52→17:05)
[2022-07-11 05:31] LABS: Basophils % 0.3 % (0.0-0.8); Eosinophils # 0.2 10*3/uL (0.0-0.87); Eosinophils % 3.3 % (0.00-10.9); Hematocrit 24.6 VOL% (42.0-52.0); Hemoglobin 7.9 GM/DL (14.0-18.0); Immature Granulocytes % 0.4 %; Immature Granulocytes Absolute 0.03 #; Lymphocytes # 1.9 10*3/uL (1.4-4.0); Lymphocytes % 26.7 % (21.2-54.2); Mean Corpuscular HGB Conc 32.1 GM/DL (32-36); Mean Corpuscular Volume 96.9 FL (87-102); Mean Platelet Volume 11.6 FL (9.6-12.0); Monocytes # 1.4 10*3/uL (0.11-0.8); Monocytes % 19.2 % (1.7-12.7); Neutrophils % 50.1 % (38.7-73.9); Platelet Count 128 T/CUMM (130-400); Red Blood Count 2.54 MC/CUMM (3.8-5.5); Red Cell Distribution Width 17.9 % (9.3-17.3); White Blood Count 7.2 T/CUMM (4-12)
[2022-07-11 05:40] LABS: Calcium 8.1 MG/DL (8.5-10.1); Osmolality,Calculated 283.5 MOS/KG (273-304); Potassium 4.3 MMOL/L (3.5-5.1)
[2022-07-11 06:04] LABS: Eosinophils 5 % (0-10); Lymphocytes 18 % (20-55); Total Cells Counted 100
[2022-07-11 06:05] LABS: Hypochromia Slight; Macrocytosis Slight
[2022-07-11] MEDS ORDERED: SODIUM CHLORIDE 0.9% 1,000 ML IV PRN (07:46)
[2022-07-11] MEDS: carvediloL 6.25 MG TABLET PO SCH ×2 (10:39→21:34)
[2022-07-11] MEDS: ISOSORBIDE MONONITRATE 30 MG TABLET PO SCH ×2 (10:39→21:34)
[2022-07-11] MEDS: RANOLAZINE 500 MG TABLET PO SCH (10:39)
[2022-07-11] MEDS ORDERED: cefTRIAXone 1,000 MG in SODIUM CHLORIDE 0.9% 100 ML IV SCH ×2 (16:00→20:00)
[2022-07-11] MEDS: FAMOTIDINE 20 MG TABLET PO SCH (21:34)
[2022-07-11] MEDS: ROSUVASTATIN 20 MG TABLET PO SCH (21:34)
[2022-07-11] MEDS: CETIRIZINE 10 MG TABLET PO SCH (21:34)
[2022-07-11] MEDS: ZALEPLON 5 MG CAPSULE PO SCH (21:39)
[2022-07-12] MEDS: ACETAMINOPHEN 325 MG TABLET PO SCH ×2 (00:17→05:02)
[2022-07-12 06:24] LABS: Basophils % 0.6 % (0.0-0.8); Eosinophils # 0.2 10*3/uL (0.0-0.87); Eosinophils % 3.5 % (0.00-10.9); Hematocrit 31.1 VOL% (42.0-52.0); Hemoglobin 10.2 GM/DL (14.0-18.0); Immature Granulocytes % 0.6 %; Immature Granulocytes Absolute 0.04 #; Lymphocytes # 1.7 10*3/uL (1.4-4.0); Lymphocytes % 24.5 % (21.2-54.2); Mean Corpuscular HGB Conc 32.8 GM/DL (32-36); Mean Platelet Volume 11.2 FL (9.6-12.0); Monocytes # 1.1 10*3/uL (0.11-0.8); Monocytes % 16.2 % (1.7-12.7); Neutrophils % 54.6 % (38.7-73.9); Platelet Count 153 T/CUMM (130-400); Red Blood Count 3.31 MC/CUMM (3.8-5.5); White Blood Count 6.8 T/CUMM (4-12)
[2022-07-12 06:44] LABS: Eosinophils 5 % (0-10); Lymphocytes 32 % (20-55); Total Cells Counted 100
[2022-07-12 06:45] LABS: Microcytosis 1+; Ovalocytes Slight; Platelet Estimate Adequate
[2022-07-12 06:47] LABS: Calcium 8.6 MG/DL (8.5-10.1); Osmolality,Calculated 283.3 MOS/KG (273-304); Potassium 4.2 MMOL/L (3.5-5.1)
[2022-07-12 07:59] VITALS: BP 154/78
[2022-07-12] MEDS ORDERED: carvediloL 6.25 MG TABLET PO SCH (08:00)
== END 2022-07-12 08:39 | disposition home or self-care (01) | DRG 982 ==
LOC: N.OR 08:53 → N.SDSINP 08:58 → N.2W 12:22 → N.3E 07-11 08:23
PROVIDERS: ADMIT Surgery; ATTEND Surgery

== ENCOUNTER 2022-10-17 06:35 | Inpatient (IN) ==
[~2022-10-17 06:35] MED LIST changes: -ACETAMINOPHEN 325 MG TABLET PO PRN; -DOCUSATE SODIUM 100 MG CAPSULE PO PRN; +HEPARIN/NACL 0.9% 2 UNITS/ML 1,000 UNIT/500 ML BAG IV ONE; -MAGNESIUM SULF RIDER 2 GM in PREMIX 1 EACH IV PRN; -MAGNESIUM SULF RIDER 4 GM in PREMIX 1 EACH IV PRN; -NITROGLYCERIN SL 0.4 MG TABLET SL PRN; -ONDANSETRON 4 MG/2 ML VIAL IV PRN; +PHENYLEPHRINE DRIP 20 MG/250 ML PREMIX IV ONE; -POTASSIUM CHLORIDE 20 MEQ TABLET PO PRN; -ZALEPLON 5 MG CAPSULE PO PRN; -diphenhydrAMINE CAP 25 MG CAPSULE PO PRN
[2022-10-17] MEDS ORDERED: FAMOTIDINE 20 MG TABLET PO ONE (07:05)
[2022-10-17] MEDS ORDERED: MIDAZOLAM 2 MG/2 ML VIAL ONE ×2 (07:28→08:18)
[2022-10-17] MEDS ORDERED: fentaNYL 100 MCG/2 ML VIAL ONE (07:28)
[2022-10-17] MEDS ORDERED: LIDOCAINE 1% 5 ML VIAL ONE (07:44)
[2022-10-17] MEDS ORDERED: HEPARIN/NACL 0.9% 2 UNITS/ML 6,000 UNIT/3,000 ML BAG IV ONE (07:52)
[2022-10-17] MEDS: LACTATED RINGERS 1,000 ML IV SCH ×4 (08:20→21:19)
[2022-10-17] MEDS ORDERED: KETOROLAC 30 MG/1 ML VIAL ONE (09:09)
[2022-10-17] MEDS ORDERED: ONDANSETRON 4 MG/2 ML VIAL IV PRN (10:10)
[2022-10-17] MEDS ORDERED: DOCUSATE SODIUM 100 MG CAPSULE PO PRN (10:13)
[2022-10-17] MEDS ORDERED: NITROGLYCERIN SL 0.4 MG TABLET SL PRN (10:13)
[2022-10-17] MEDS ORDERED: propofoL 200 MG/20 ML VIAL IV ONE (10:33)
[2022-10-17] MEDS ORDERED: LIDOCAINE 2% 5 ML VIAL ONE (10:33)
[2022-10-17] MEDS ORDERED: NEOSTIGMINE 10 MG/10 ML VIAL ONE (10:33)
[2022-10-17] MEDS ORDERED: HEPARIN 10,000 UNIT/10 ML VIAL ONE (10:34)
[2022-10-17] MEDS ORDERED: LACTATED RINGERS 1,000 ML IV ONE (10:34)
[2022-10-17] MEDS ORDERED: SODIUM CHLORIDE 0.9% 1,000 ML IV ONE (10:34)
[2022-10-17] MEDS ORDERED: SUCCINYLCHOLINE 200 MG/10 ML VIAL ONE (10:34)
[2022-10-17] MEDS ORDERED: GLYCOPYRROLATE 0.4 MG/2 ML VIAL ONE (10:34)
[2022-10-17] MEDS ORDERED: ROCURONIUM 50 MG/5 ML VIAL IV ONE (10:34)
[2022-10-17] MEDS ORDERED: SEVOFLURANE 1 UNIT/15 MINUTE INH ONE (10:34)
[2022-10-17] MEDS ORDERED: ETOMIDATE 40 MG/20 ML VIAL IV ONE (10:34)
[2022-10-17 11:09] LABS: Calcium 8.6 MG/DL (8.5-10.1); Osmolality,Calculated 288.3 MOS/KG (273-304); Potassium 5.1 MMOL/L (3.5-5.1)
[2022-10-17] MEDS ORDERED: FAMOTIDINE 20 MG TABLET PO PRN (11:59)
[2022-10-17] MEDS: HYDROmorphone 1 MG/1 ML SYRINGE IV PRN ×3 (12:55→21:29)
[2022-10-17] MEDS: oxyCODONE/ACETAMINOPHEN 5-325 MG TABLET PO PRN (16:22)
[2022-10-17] MEDS ORDERED: AMOXICILLIN/CLAV 500 MG TABLET PO SCH (18:00)
[2022-10-17] MEDS: carvediloL 6.25 MG TABLET PO SCH (18:07)
[2022-10-17] MEDS: CIPROFLOXACIN 250 MG TABLET PO SCH (18:07)
[2022-10-17] MEDS ORDERED: CHOLECALCIFEROL 5,000 UNIT TABLET PO SCH (21:00)
[2022-10-17] MEDS ORDERED: ZALEPLON 5 MG CAPSULE PO SCH (21:00)
[2022-10-17] MEDS ORDERED: CETIRIZINE 10 MG TABLET PO SCH (21:00)
[2022-10-17] MEDS ORDERED: ROSUVASTATIN 20 MG TABLET PO SCH (21:00)
[2022-10-17] MEDS ORDERED: FAMOTIDINE 20 MG TABLET PO SCH (21:00)
[2022-10-17] MEDS: TICAGRELOR 90 MG TABLET PO SCH (21:16)
[2022-10-18] MEDS: HYDROmorphone 1 MG/1 ML SYRINGE IV PRN (00:48)
[2022-10-18] MEDS: oxyCODONE/ACETAMINOPHEN 5-325 MG TABLET PO PRN (01:54)
[2022-10-18 06:29] LABS: Basophils % 0.1 % (0.0-0.8); Eosinophils % 0.1 % (0.00-10.9); Hematocrit 29.9 VOL% (42.0-52.0); Hemoglobin 9.6 GM/DL (14.0-18.0); Immature Granulocytes % 0.5 %; Immature Granulocytes Absolute 0.08 #; Lymphocytes # 2.1 10*3/uL (1.4-4.0); Lymphocytes % 12.6 % (21.2-54.2); Mean Corpuscular HGB Conc 32.1 GM/DL (32-36); Mean Corpuscular Volume 96.8 FL (87-102); Monocytes # 2.7 10*3/uL (0.11-0.8); Monocytes % 15.9 % (1.7-12.7); Neutrophils % 70.8 % (38.7-73.9); Platelet Count 124 T/CUMM (130-400); Red Blood Count 3.09 MC/CUMM (3.8-5.5); Red Cell Distribution Width 14.8 % (9.3-17.3); White Blood Count 16.7 T/CUMM (4-12)
[2022-10-18 06:49] LABS: Lymphocytes 17 % (20-55); Platelet Estimate Decreased; Total Cells Counted 100
[2022-10-18 06:56] LABS: Calcium 8.8 MG/DL (8.5-10.1)
[2022-10-18] MEDS: LACTATED RINGERS 1,000 ML IV SCH (07:12)
[2022-10-18 07:17] VITALS: BP 133/64
[2022-10-18] MEDS ORDERED: AMOXICILLIN/CLAV 500 MG TABLET PO SCH (08:00)
[2022-10-18] MEDS ORDERED: VITAMIN E 400 UNIT CAPSULE PO SCH (09:00)
[2022-10-18] MEDS ORDERED: MULTIVITAMIN (CENTRUM) TABLET PO SCH (09:00)
[2022-10-18] MEDS: carvediloL 6.25 MG TABLET PO SCH (19:44)
[2022-10-18] MEDS: TICAGRELOR 90 MG TABLET PO SCH (19:44)
[2022-10-18] MEDS: CIPROFLOXACIN 250 MG TABLET PO SCH (19:44)
== END 2022-10-18 09:15 | disposition home or self-care (01) | DRG 271 ==
LOC: N.SDSINP 06:35 → N.3E 11:41
PROVIDERS: ADMIT Surgery; ATTEND Radiology Diagnostic Radiology
PROC: IRERAAA (2022-10-17 07:05)